=== PATIENT | male | born 1940 | race Caucasian/White ===

== ENCOUNTER 2016-05-29 13:07 | Outpatient (CLI) ==
[2015-12-15 16:46] VITALS: BMI 39.6
--- NOTE | 2016-06-03 09:12 | HOLTER ---
PATIENT INFORMATION AND COMMENTS Indications: BRADYCARDIA __ Patient Medications: METFORMIN, MIRABEGRON, FLEXERIL, LYRICA, MIRALAX, SENOKOT , RANITIDINE, FLOMAX, METOPROLOL, ATORVASTATIN __ Pre-procedure Summary: Protocol: Standard Heart Rate Started: 05/29/16 1325 Minimum: 47 BPM Weight: 290 LBS Ended: 05/30/16 1325 Maximum: 164 BPM Height: 73" Duration: 21 HOURS Average: 61 BPM _ INTERPRETATIONS/OBSERVATIONS: 1. BASIC RHYTHM: SINUS, RATE 47/BPM TO 120/BPM, AVERAGE 60/BPM 2. FREQUENT PVC'S (NO V. TACH) MORE THAN 10% BEATS SCANNED 3. FREQUENT PAC'S, SOME BLOCKED (NO TACHYCARDIA) MORE THAN 10% OF BEATS SCANNED 4. NO PAUSES GREATER THAN [address]-T WAVE CHANGES FROM BASELINE 6. ACTIVITY LOG NOT MAINTAINED MTDD
== END 2016-05-29 13:08 | disposition home or self-care (01) ==
LOC: CAR 13:07
PROVIDERS: ATTEND General Practice
DX: R00.1 Bradycardia, unspecified (principal)

== ENCOUNTER 2016-09-27 15:53 | Outpatient (CLI) ==
[2015-12-15 16:46] VITALS: BMI 39.6
[2016-09-27 16:59] LABS: ALBUMIN 3.7 g/dL (3.4-5.0); BUN/CREATININE RATIO 23.86; CALCIUM 9.3 mg/dL (8.2-10.2); CREATININE 0.88 mg/dL (0.60-1.10); PHOSPHORUS 3.4 mg/dL (2.3-3.7)
== END 2016-09-27 15:54 | disposition home or self-care (01) ==
LOC: LAB 15:53
PROVIDERS: ATTEND General Practice
DX: E11.9 Type 2 diabetes mellitus without complications (principal); I10 Essential (primary) hypertension; Z79.899 Other long term (current) drug therapy
CPT/HCPCS: 36415; 80069; 83036